=== PATIENT | female | born 1995 | race Caucasian/White ===

== ENCOUNTER 2019-01-17 18:59 | Emergency (ER) | payer OTHER ==
[2019-01-17 19:04] VITALS: TEMP 98.5
[2019-01-17] MEDS ORDERED: SODIUM CHLORIDE 0.9% 1,000 ML IV STA (19:30)
[2019-01-17 20:14] LABS: Basophils % (A) 0 %; Eosinophils # (A) 0.1 k/uL (0-0.7); Eosinophils % (A) 2 %; HCT 41.5 % (34.0-46.0); HGB 13.6 gm/dL (11.4-16.0); Lymphocytes # (A) 1.6 k/uL (1.0-4.8); Lymphocytes % (A) 22 %; MCH 27.5 pg (25.0-35.0); MCHC 32.7 g/dL (31.0-37.0); MCV 84.2 fL (80.0-100.0); Mean Platelet Volume 8.3; Monocytes # (A) 0.3 k/uL (0-1.0); Monocytes % (A) 4 %; Neutrophils # (A) 4.9 k/uL (1.3-7.7); Neutrophils % (A) 71 %; Platelet Count 237 k/uL (150-450); RBC 4.93 m/uL (3.80-5.40); RDW 15.6 % (11.5-15.5)
[2019-01-17 20:17] LABS: ALT 20 U/L (9-52); AST 34 U/L (14-36); African American GFR (CKD) >90 (>60 ml/min/1.73 sqM); Alkaline Phosphatase 64 U/L (38-126); Anion Gap 14 mmol/L; Blood Urea Nitrogen 8 mg/dL (7-17); Calcium 9.9 mg/dL (8.4-10.2); Carbon Dioxide 14 mmol/L (22-30); Chloride 113 mmol/L (98-107); Glucose 82 mg/dL (74-99); Non-African American GFR(CKD) >90 (>60 ml/min/1.73 sqM); Sodium 141 mmol/L (137-145); Total Protein 8.7 g/dL (6.3-8.2)
[2019-01-17 20:24] LABS: Appearance,Urine Clear (Clear); Bilirubin,Urine Negative (Negative); Blood,Urine Negative (Negative); Color,Urine Yellow; Glucose,Urine (UA) Negative (Negative); Ketones,Urine 4+ (Negative); Leukocyte Esterase,Urine Negative (Negative); Nitrite,Urine Negative (Negative); Protein,Urine Trace (Negative); Specific Gravity,Urine 1.029 (1.001-1.035); Urobilinogen,Urine <2.0 mg/dL (<2.0)
--- NOTE | 2019-01-17 20:35 | US ---
EXAMINATION TYPE: US abdomen APPY DATE OF EXAM: 01/17/2019 COMPARISON: Correlation findings on CT at [facility] on CLINICAL HISTORY: 23-year-old female RLQ pain. 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 FINDINGS: APPENDIX AP Diameter (normal < 6mm): 6.7 mm Measured outer wall to outer wall. Is the appendix seen in its entirety from the proximal cecum to distal end: Yes Is the appendix compressible: No Does the appendix wall appear hypervascular: No Is an appendicolith present: yes, size = 0.7 x 0.4 x 0.2cm Is there inflammatory changes or free fluid present: no IMPRESSION: Equivocal for acute appendicitis at this time. A 7 mm appendicolith is present. Some segments of the appendix are normal caliber. The segment at the site of appendicolith is mildly thickened and appears to be noncompressible. Further clinical correlation for possible early acute appendicitis will be ne eded.
[2019-01-17 20:37] LABS: Amphetamine Screen,Urine Not Detected (NotDetected); Barbiturate Screen,Urine Not Detected (NotDetected); Benzodiazepines Screen,Urine Not Detected (NotDetected); Cocaine Screen,Urine Not Detected (NotDetected); Methadone Screen, Urine Not Detected (NotDetected); Opiate Screen,Urine Detected (NotDetected); Oxycodone Screen, Urine Not Detected (NotDetected); Phencyclidine Screen,Urine Not Detected (NotDetected); Tricyclic Antidepressant,Urine Not Detected (NotDetected); Urn Cannabinoid Scrn Detected (NotDetected)
[2019-01-17 20:37] LABS: Potassium 4.3 mmol/L (3.5-5.1)
--- NOTE | 2019-01-17 22:06 | ED ---
General Adult HPI - General Source: patient, RN notes reviewed, old records reviewed Mode of arrival: ambulatory Limitations: no limitations <Gerson Walsh - Last Filed: 01/18/19 00:37> <Cresencio Mari - Last Filed: 01/18/19 01:28> - General Chief complaint: Abdominal Pain Stated complaint: Abd Pain Time Seen by Provider: 01/17/19 19:10 - History of Present Illness Initial comments: 23-year-old female patient presents ED chief complaint approximately 3 weeks of right lower quadrant pain. Patient was initially seen on at [facility]. She is admitted for possible acute appendicitis. Patient is due to have surgery on [place] the surgery was pushed back multiple times she left AGAINST MEDICAL ADVICE. Patient then went to [facility] today. She was initiated on IV antibiotics and transferred here for possible appendicitis. Reports she has had nausea and vomiting. Patient also reports that she has had a handful simple episodes over the last few weeks. Patient reports that she is unable to keep any food down his had nausea and vomiting. For the chief complaint is abdominal pain. Denies any chance of being . Systemic: Pt denies fatigue, fever/chills, rash. Pt denies weakness, night sweats, weight loss. Neuro: Pt denies headache, visual disturbances, syncope or pre-syncope. HEENT: Pt denies ocular discharge or irritation, otalgia, rhinorrhea, pharyngitis or notable lymphadenopathy. Cardiopulmonary: Pt denies chest pain, SOB, heart palpitations, dyspnea on exertion. : Pt denies dysuria, burning w/ urination, frequency/urgency. Denies new onset urinary or bowel incontinence. MSK: Pt denies myalgia, loss of strength or function in extremities. Neuro: Pt denies new onset weakness, paresthesias. (Gerson Walsh) - Related Data Home Medications Medication Instructions Recorded Confirmed No Known Home Medications 01/17/19 01/17/19 Allergies Allergy/AdvReac Type Severity Reaction Status Date / Time No Known Allergies Allergy Verified 01/17/19 21:41 Review of Systems ROS Other: All systems not noted in ROS Statement are negative. <Gerson Walsh - Last Filed: 01/18/19 00:37> ROS Other: All systems not noted in ROS Statement are negative. <Cresencio Mari Last Filed: 01/18/19 01:28> ROS Statement: Those systems with pertinent positive or pertinent negative responses have been documented in the HPI. Past Medical History Past Medical History: No Reported History History of Any Multi-Drug Resistant Organisms: None Reported Past Surgical History: Cholecystectomy Past Psychological History: Anxiety Smoking Status: Never smoker Past Alcohol Use History: Occasional Past Drug Use History: None Reported <Gerson Walsh - Last Filed: 01/18/19 00:37> General Exam Limitations: no limitations <NicoJose MGerson J - Last Filed: 01/18/19 00:37> - General Exam Comments Initial Comments: Constitutional: NAD, AOX3, Pt has pleasant affect. HEENT: NC/AT, trachea midline, neck supple, no lymphadenopathy. Posterior pharynx non erythematous, without exudates. External ears appear normal, without discharge. Mucous membranes moist. Eyes PERRLA, EOM intact. There is no scleral icterus. No pallor noted. Cardiopulmonary: RRR, no murmurs, rubs or gallops, no JVD noted. Lungs CTAB in a nterior and posterior parker. No peripheral edema. Abdominal exam: Abdomen soft and non-distended. Abdomen moderately tender to palpation in right lower quadrant. No other areas of abdominal tenderness. No guarding noted. No ecchymoses.. Bowel sounds active in LLQ. No hepatosplenomegaly. No ecchymosis Neuro: CN II-XII grossly intact. No nuchal rigidity. No raccon eyes, no waldrop sign, no hemotympanum. No cervical spinal tenderness. MSK: No posterior calf tenderness bilaterally, homans sign negative bilaterally. Posterior tibialis and radial pulse +2 bilaterally. Sensation intact in upper and lower extremities. Full active ROM in upper and lower extremities, 5/5 stregnth. (Gerson Walsh) Course <Cresencio Mari - Last Filed: 01/18/19 01:28> Vital Signs 01/17/19 01/18/19 19:01 00:45 Temperature 98.5 F Pulse Rate 84 65 Respiratory 18 16 Rate Blood Pressure 111/73 111/58 O2 Sat by Pulse 97 99 Oximetry - Reevaluation(s) Reevaluation #1: 01/18/19 01:25 Patient has no abdominal tenderness at this time, and she states that her pain has now resolved. Patient's appendix was not seen on CT abdomen and pelvis. Patient reports having abdominal pain for 3 weeks. Patient's white blood cell count is normal. Patient's appendix was not seen on CT abdomen and pelvis, but no secondary findings of acute appendicitis were noted. Patient was seen and examined by Dr. Alberts (general surgery) in the ED. He states that he offered the patient hospital admission for observation and potential surgery if her symptoms returned or worsened. He states that the patient declined hospital admission, and she preferred to be discharged home at this time. (Cresencio Mari) Medical Decision Making - Lab Data Result diagrams: 01/17/19 17:50 01/17/19 17:50 <Gerson Walsh - Last Filed: 01/18/19 00:37> - Lab Data Result diagrams: 01/17/19 17:50 01/17/19 17:50 <Cresencio Mari - Last Filed: 01/18/19 01:28> - Medical Decision Making 23-year-old female patient. See chief complaint of right lower quadrant pain possible appendicitis. Patient vital signs are stable, afebrile. Physical exam displayed right lower quadrant region mild tenderness to palpation. The investigations available unimpressive. Plus for ketones. Ultrasound equivocal for acute appendicitis. Case discussed with on-call surgeon Dr. Alberts who recommended repeat CAT scan. This was discussed with patient who is agreeable to this. CAT scan displayed bilateral ovarian cyst, minimal free fluid in the pelvis could be physiologic, appendix not seen, no sign of thickened appendix. Patient signed out to Dr. Mari pending Dr. Alberts evaluation in ED. (Gerson Walsh) - Lab Data Lab Results 01/17/19 01/17/19 01/17/19 Range/Units 17:50 17:50 17:50 WBC 7.0 (3.8-10.6) k/uL RBC 4.93 (3.80-5.40) m/uL Hgb 13.6 (11.4-16.0) gm/dL Hct 41.5 (34.0-46.0) % MCV 84.2 (80.0-100.0) fL MCH 27.5 (25.0-35.0) pg MCHC 32.7 (31.0-37.0) g/dL RDW 15.6 H (11.5-15.5) % Plt Count 237 (150-450) k/uL Neutrophils % 71 % Lymphocytes % 22 % Monocytes % 4 % Eosinophils % 2 % Basophils % 0 % Neutrophils # 4.9 (1.3-7.7) k/uL Lymphocytes # 1.6 (1.0-4.8) k/uL Monocytes # 0.3 (0-1.0) k/uL Eosinophils # 0.1 (0-0.7) k/uL Basophils # 0.0 (0-0.2) k/uL ESR (0-20) mm/hr Sodium 141 (137-145) mmol/L Potassium 4.3 (3.5-5.1) mmol/L Chloride 113 H (98-107) mmol/L Carbon Dioxide 14 L (22-30) mmol/L Anion Gap 14 mmol/L BUN 8 (7-17) mg/dL Creatinine 0.58 (0.52-1.04) mg/dL Est GFR (CKD-EPI)AfAm >90 (>60 ml/min/1.73 sqM) Est GFR (CKD-EPI)NonAf >90 (>60 ml/min/1.73 sqM) Glucose 82 (74-99) mg/dL Plasma Lactic Acid Mick 1.1 (0.7-2.0) mmol/L Calcium 9.9 (8.4-10.2) mg/dL Total Bilirubin 1.0 (0.2-1.3) mg/dL AST 34 (14-36) U/L ALT 20 (9-52) U/L Alkaline Phosphatase 64 (38-126) U/L C-Reactive Protein (<10.0) mg/L Total Protein 8.7 H (6.3-8.2) g/dL Albumin 5.0 (3.5-5.0) g/dL Lipase 160 (23-300) U/L Urine Color Urine Appearance (Clear) Urine pH (5.0-8.0) Ur Specific [place] (1.001-1.035) Urine Protein (Negative) Urine Glucose (UA) (Negative) Urine Ketones (Negative) Urine Blood (Negative) Urine Nitrite (Negative) Urine Bilirubin (Negative) Urine Urobilinogen (<2.0) mg/dL Ur Leukocyte Esterase (Negative) Urine HCG, Qual (Not Detectd) Urine Opiates Screen (NotDetected) Ur Oxycodone Screen (NotDetected) Urine Methadone Screen (NotDetected) Ur Propoxyphene Screen (NotDetected) Ur Barbiturates Screen (NotDetected) U Tricyclic Antidepress (NotDetected) Ur Phencyclidine Scrn (NotDetected) Ur Amphetamines Screen (NotDetected) U Methamphetamines Scrn (NotDetected) U Benzodiazepines Scrn (NotDetected) Urine Cocaine Screen (NotDetected) U Marijuana (THC) Screen (NotDetected) 01/17/19 01/17/19 01/17/19 Range/Units 17:50 17:50 20:16 WBC (3.8-10.6) k/uL RBC (3.80-5.40) m/uL Hgb (11.4-16.0) gm/dL Hct (34.0-46.0) % MCV (80.0-100.0) fL MCH (25.0-35.0) pg MCHC (31.0-37.0) g/dL RDW (11.5-15.5) % Plt Count (150-450) k/uL Neutrophils % % Lymphocytes % % Monocytes % % Eosinophils % % Basophils % % Neutrophils # (1.3-7.7) k/uL Lymphocytes # (1.0-4.8) k/uL Monocytes # (0-1.0) k/uL Eosinophils # (0-0.7) k/uL Basophils # (0-0.2) k/uL ESR 3 (0-20) mm/hr Sodium (137-145) mmol/L Potassium (3.5-5.1) mmol/L Chloride (98-107) mmol/L Carbon Dioxide (22-30) mmol/L Anion Gap mmol/L BUN (7-17) mg/dL Creatinine (0.52-1.04) mg/dL Est GFR (CKD-EPI)AfAm (>60 ml/min/1.73 sqM) Est GFR (CKD-EPI)NonAf (>60 ml/min/1.73 sqM) Glucose (74-99) mg/dL Plasma Lactic Acid Mick (0.7-2.0) mmol/L Calcium (8.4-10.2) mg/dL Total Bilirubin (0.2-1.3) mg/dL AST (14-36) U/L ALT (9-52) U/L Alkaline Phosphatase (38-126) U/L C-Reactive Protein <5.0 (<10.0) mg/L Total Protein (6.3-8.2) g/dL Albumin (3.5-5.0) g/dL Lipase (23-300) U/L Urine Color Urine Appearance (Clear) Urine pH (5.0-8.0) Ur Specific [place] (1.001-1.035) Urine Protein (Negative) Urine Glucose (UA) (Negative) Urine Ketones (Negative) Urine Blood (Negative) Urine Nitrite (Negative) Urine Bilirubin (Negative) Urine Urobilinogen (<2.0) mg/dL Ur Leukocyte Esterase (Negative) Urine HCG, Qual Not Detected (Not Detectd) Urine Opiates Screen (NotDetected) Ur Oxycodone Screen (NotDetected) Urine Methadone Screen (NotDetected) Ur Propoxyphene Screen (NotDetected) Ur Barbiturates Screen (NotDetected) U Tricyclic Antidepress (NotDetected) Ur Phencyclidine Scrn (NotDetected) Ur Amphetamines Screen (NotDetected) U Methamphetamines Scrn (NotDetected) U Benzodiazepines Scrn (NotDetected) Urine Cocaine Screen (NotDetected) U Marijuana (THC) Screen (NotDetected) 01/17/19 Range/Units 20:16 WBC (3.8-10.6) k/uL RBC (3.80-5.40) m/uL Hgb (11.4-16.0) gm/dL Hct (34.0-46.0) % MCV (80.0-100.0) fL MCH (25.0-35.0) pg MCHC (31.0-37.0) g/dL RDW (11.5-15.5) % Plt Count (150-450) k/uL Neutrophils % % Lymphocytes % % Monocytes % % Eosinophils % % Basophils % % Neutrophils # (1.3-7.7) k/uL Lymphocytes # (1.0-4.8) k/uL Monocytes # (0-1.0) k/uL Eosinophils # (0-0.7) k/uL Basophils # (0-0.2) k/uL ESR (0-20) mm/hr Sodium (137-145) mmol/L Potassium (3.5-5.1) mmol/L Chloride (98-107) mmol/L Carbon Dioxide (22-30) mmol/L Anion Gap mmol/L BUN (7-17) mg/dL Creatinine (0.52-1.04) mg/dL Est GFR (CKD-EPI)AfAm (>60 ml/min/1.73 sqM) Est GFR (CKD-EPI)NonAf (>60 ml/min/1.73 sqM) Glucose (74-99) mg/dL Plasma Lactic Acid Mick (0.7-2.0) mmol/L Calcium (8.4-10.2) mg/dL Total Bilirubin (0.2-1.3) mg/dL AST (14-36) U/L ALT (9-52) U/L Alkaline Phosphatase (38-126) U/L C-Reactive Protein (<10.0) mg/L Total Protein (6.3-8.2) g/dL Albumin (3.5-5.0) g/dL Lipase (23-300) U/L Urine Color Yellow Urine Appearance Clear (Clear) Urine pH 6.0 (5.0-8.0) Ur Specific [place] 1.029 (1.001-1.035) Urine Protein Trace H (Negative) Urine Glucose (UA) Negative (Negative) Urine Ketones 4+ H (Negative) Urine Blood Negative (Negative) Urine Nitrite Negative (Negative) Urine Bilirubin Negative (Negative) Urine Urobilinogen <2.0 (<2.0) mg/dL Ur Leukocyte Esterase Negative (Negative) Urine HCG, Qual (Not Detectd) Urine Opiates Screen Detected H (NotDetected) Ur Oxycodone Screen Not Detected (NotDetected) Urine Methadone Screen Not Detected (NotDetected) Ur Propoxyphene Screen Not Detected (NotDetected) Ur Barbiturates Screen Not Detected (NotDetected) U Tricyclic Antidepress Not Detected (NotDetected) Ur Phencyclidine Scrn Not Detected (NotDetected) Ur Amphetamines Screen Not Detected (NotDetected) U Methamphetamines Scrn Not Detected (NotDetected) U Benzodiazepines Scrn Not Detected (NotDetected) Urine Cocaine Screen Not Detected (NotDetected) U Marijuana (THC) Screen Detected H (NotDetected) Disposition Is patient prescribed a controlled substance at d/c from ED?: No <Gerson Walsh - Last Filed: 01/18/19 00:37> Is patient prescribed a controlled substance at d/c from ED?: No Time of Disposition: 01:28 <Cresencio Mari - Last Filed: 01/18/19 01:28> Clinical Impression: Abdominal pain Disposition: HOME SELF-CARE Condition: Stable Instructions (If sedation given, give patient instructions): Abdominal Pain (ED) Additional Instructions: All the primary care provider and GI consult tomorrow. Return to ER if condition worsens in any way. Referrals: None,Stated [Primary Care Provider] - 1-2 days Samantha Justice MD [STAFF PHYSICIAN] - 1-2 days
[2019-01-17] MEDS ORDERED: PIPERACILLIN-TAZOBACTAM 3.375 GM in SODIUM CHLORIDE 0.9% 100 ML IVPB STA (22:41)
--- NOTE | 2019-01-17 22:53 | CT ---
EXAMINATION TYPE: CT abdomen pelvis w con DATE OF EXAM: 01/17/2019 COMPARISON: None HISTORY: RLQ pain CT DLP: 420.5 mGycm Automated exposure control for dose reduction was used. TECHNIQUE: Helical acquisition of images was performed from the lung bases through the pelvis. CONTRAST: Performed without Oral Contrast and with IV Contrast, patient injected with 100 mL of Isovue 300. FINDINGS: CT scan of the abdomen pelvis. History right lower quadrant pain. Comparison none. TECHNIQUE: Multiple axial sections were obtained from the diaphragm to the floor the pelvis with intravenous con trast Isovue 100 mL. FINDINGS: Heart appears normal. Lung bases are clear. There is no pleural effusion. Liver spleen pancreas stomach appear normal. There are clips from cholecystectomy. Bile ducts are not dilated. There is no adrenal mass. Kidneys show satisfactory contrast opacification. There is no hydronephrosi s. There is no retroperitoneal adenopathy. Abdominal aorta appears normal. Bladder distends smoothly. There is no inguinal hernia. Uterus is anteverted. There is tiny amount of free fluid in the pelvis. There is no mesenteric edema. There is no ascites. There is no free air. There are bilateral cysts o n the ovaries that measure up to 2 cm. Appendix is not definitely seen. There is no sign of a thicken ed appendix. Lumbar spine is intact. Bony pelvis appears intact. IMPRESSION: BILATERAL OVARIAN CYSTS. MINIMAL FREE FLUID IN THE PELVIS COULD BE PHYSIOLOGIC. APPENDIX NOT SEEN. NO SIGN OF THICKENED APPENDIX.
[2019-01-18] MEDS ORDERED: SODIUM CHLORIDE 0.9% 1,000 ML IV STA (00:41)
[2019-01-18 00:47] VITALS: BP 111/58; PULSE 65; RESP 16
--- NOTE | 2019-01-18 01:50 | P.GSCN ---
History of Present Illness Consult date: 01/18/19 History of present illness: 23-year-old female presented to the emergency department as a transfer from an outside hospital secondary to right lower quadrant pain. The patient states that this pain started 3 weeks ago and has been on and off in nature. She also was admitted secondary to this pain 2 days ago to an outside facility. Apparently, the hospital staff was busy with more urgent patient's at the time and the patient did leave AMA. She began having the right lower quadrant pain once again and did present to the outside facility and was transferred to rule out acute appendicitis. The patient states that the pain is in the infraumbilical location and has been on and off for 3 weeks. Currently, she states that the pain has subsided. She describes the pain as crampy in nature similar to pain from menses. She complains of nausea and emesis episodes when the pain does arise. On workup, the patient did have an ultrasound and CTA of the abdomen and pelvis. The ultrasound was equivocal to rule out acute appendicitis with a notable appendicolith but no significant inflammation or dilation of the area the appendix was not clearly visualized on CT. There was no evidence of thickened appendix on CT. Patient denies any fevers, chills, chest pain or shortness of breath. Review of Systems All systems: negative Past Medical History Past Medical History: No Reported History History of Any Multi-Drug Resistant Organisms: None Reported Past Surgical History: Cholecystectomy Past Psychological History: Anxiety Smoking Status: Never smoker Past Alcohol Use History: Occasional Past Drug Use History: None Reported Medications and Allergies Home Medications Medication Instructions Recorded Confirmed Type No Known Home Medications 01/17/19 01/17/19 History Allergies Allergy/AdvReac Type Severity Reaction Status Date / Time No Known Allergies Allergy Verified 01/17/19 21:41 Surgical - Exam Osteopathic Statement: *. No significant issues noted on an osteopathic structural exam other than those noted in the History and Physical/Consult. Vital Signs Temp Pulse Resp BP Pulse Ox 98.5 F 84 18 111/73 97 01/17/19 19:01 01/17/19 19:01 01/17/19 19:01 01/17/19 19:01 01/17/19 19:01 - General well developed, well nourished, no distress - Eyes PERRL, normal ocular movement - ENT normal nares, normal mucosa, no hearing loss - Neck no masses, no bruits, trachea midline - Respiratory normal expansion, normal respiratory effort - Abdomen Soft, mild tenderness to palpation in the infraumbilical region, nontender to percussion, no rebound, no guarding - Integumentary no rash, no growths - Neurologic normal coordination, normal sensation - Psychiatric oriented to time, oriented to person, oriented to place Results - Labs 01/17/19 17:50 01/17/19 17:50 Abnormal Lab Results - Last 24 Hours (Table) 01/17/19 01/17/19 01/17/19 Range/Units 17:50 17:50 20:16 RDW 15.6 H (11.5-15.5) % Chloride 113 H (98-107) mmol/L Carbon Dioxide 14 L (22-30) mmol/L Total Protein 8.7 H (6.3-8.2) g/dL Urine Protein Trace H (Negative) Urine Ketones 4+ H (Negative) Urine Opiates Screen Detected H (NotDetected) U Marijuana (THC) Screen Detected H (NotDetected) Diabetes panel 01/17/19 Range/Units 17:50 Sodium 141 (137-145) mmol/L Potassium 4.3 (3.5-5.1) mmol/L Chloride 113 H (98-107) mmol/L Carbon Dioxide 14 L (22-30) mmol/L BUN 8 (7-17) mg/dL Creatinine 0.58 (0.52-1.04) mg/dL Glucose 82 (74-99) mg/dL Calcium 9.9 (8.4-10.2) mg/dL AST 34 (14-36) U/L ALT 20 (9-52) U/L Alkaline Phosphatase 64 (38-126) U/L Total Protein 8.7 H (6.3-8.2) g/dL Albumin 5.0 (3.5-5.0) g/dL Calcium panel 01/17/19 Range/Units 17:50 Calcium 9.9 (8.4-10.2) mg/dL Albumin 5.0 (3.5-5.0) g/dL Pituitary panel 01/17/19 Range/Units 17:50 Sodium 141 (137-145) mmol/L Potassium 4.3 (3.5-5.1) mmol/L Chloride 113 H (98-107) mmol/L Carbon Dioxide 14 L (22-30) mmol/L BUN 8 (7-17) mg/dL Creatinine 0.58 (0.52-1.04) mg/dL Glucose 82 (74-99) mg/dL Calcium 9.9 (8.4-10.2) mg/dL Adrenal panel 01/17/19 Range/Units 17:50 Sodium 141 (137-145) mmol/L Potassium 4.3 (3.5-5.1) mmol/L Chloride 113 H (98-107) mmol/L Carbon Dioxide 14 L (22-30) mmol/L BUN 8 (7-17) mg/dL Creatinine 0.58 (0.52-1.04) mg/dL Glucose 82 (74-99) mg/dL Calcium 9.9 (8.4-10.2) mg/dL Total Bilirubin 1.0 (0.2-1.3) mg/dL AST 34 (14-36) U/L ALT 20 (9-52) U/L Alkaline Phosphatase 64 (38-126) U/L Total Protein 8.7 H (6.3-8.2) g/dL Albumin 5.0 (3.5-5.0) g/dL - Imaging CT scan - abdomen: report reviewed, image reviewed CT scan - pelvis: report reviewed, image reviewed US - abdomen: report reviewed, image reviewed Assessment and Plan (1) Abdominal pain Narrative/Plan: 23-year-old female with abdominal pain - I discussed the case in depth with the patient. Due to the on and off nature of the pain for 3 weeks, acute appendicitis is less likely, however due to finding of appendicolith on ultrasound, it cannot be completely ruled out. The CT of the abdomen and pelvis did also reveal ovarian cysts of approximately 2 cm in size. As the patient did complain of pain similar to menses, it is also possible that the pain is arising from ovarian cyst. She also was noted not to have a any leukocytosis or left shift. She does not have a fever and is showing no signs of infection at this time. I did offer the patient observation in the hospital with possibility of appendectomy should her symptoms increase or show any sign of increasing infection. The patient did refuse admission and states she will return to the emergency department if her pain returns. Current Visit: Yes Status: Acute Code(s): R10.9 - UNSPECIFIED ABDOMINAL PAIN SNOMED Code(s): 74302145
== END 2019-01-18 01:51 | disposition home or self-care (01) ==
LOC: EC 18:59
DX: R10.31 Right lower quadrant pain (principal); N83.201 Unspecified ovarian cyst, right side; N83.202 Unspecified ovarian cyst, left side; Z90.49 Acquired absence of other specified parts of digestive tract
CPT/HCPCS: 36415; 93005; 80053; 85652; 83605; 83690; 85025; 86140; 81003; 81025; 87040; 80306; 76705; 74177; 99285; 96365; 96361 ×2; J2543; Q9967